=== PATIENT | female | born 1975 | race Two or more races ===

== ENCOUNTER 2020-08-07 21:52 | Emergency (ER) | payer OTHER ==
[2020-08-07 22:13] VITALS: BP 126/89; PULSE 90; RESP 16; TEMP 98
--- NOTE | 2020-08-07 22:33 | ED ---
Overdose HPI - General Chief Complaint: Overdose Stated Complaint: Overdose Time Seen by Provider: 08/07/20 22:16 Source: patient, EMS Mode of arrival: EMS Limitations: no limitations - History of Present Illness Initial Comments: This patient is a 44-year-old woman who is brought by ambulance here after suspected accidental drug overdose. Patient reportedly had been found by a friend, lying down outside and poorly responsive. Friend had reportedly said that they had been using drugs, reportedly crack and fentanyl. When I interview the patient, she states she does not remember the episode. She does not recall how she came to be in the emergency department. She is declining any medical complaints other than stating that it feels like she has some abrasions on her knees. Patient denies head, neck, chest, back or abdomen pain. Denies dyspnea, cough. Patient denies weakness or numbness. She denies any change in vision or speech. MD Complaint: accidental overdose How Overdose Was Discovered: family/friend present at time Context: Accidental Overdose: wanted to get high Review of Systems ROS Statement: Those systems with pertinent positive or pertinent negative responses have been documented in the HPI. ROS Other: All systems not noted in ROS Statement are negative. Constitutional: Denies: fever, chills Eyes: Denies: eye pain, vision change ENT: Denies: hearing loss Respiratory: Denies: cough, dyspnea Cardiovascular: Denies: chest pain, palpitations, orthopnea, edema, syncope Gastrointestinal: Denies: abdominal pain, vomiting Genitourinary: Denies: dysuria, hematuria Musculoskeletal: Denies: back pain Skin: Reports: other (Abrasions to bilateral knees). Denies: rash Neurological: Denies: headache, weakness, numbness, confusion Psychiatric: Denies: depression, homicidal thoughts, suicidal thoughts Past Medical History Past Medical History: No Reported History History of Any Multi-Drug Resistant Organisms: None Reported Past Surgical History: Section Smoking Status: Current every day smoker Past Alcohol Use History: Occasional Past Drug Use History: Cocaine General Exam Limitations: no limitations General appearance: alert, in no apparent distress Head exam: Present: atraumatic, normocephalic Eye exam: Present: normal appearance, PERRL, EOMI. Absent: scleral icterus, conjunctival injection, nystagmus ENT exam: Present: normal oropharynx Neck exam: Present: normal inspection, full ROM. Absent: tenderness Respiratory exam: Present: normal lung sounds bilaterally. Absent: respiratory distress, wheezes, rales, rhonchi, stridor, chest wall tenderness Cardiovascular Exam: Present: regular rate, normal rhythm, normal heart sounds. Absent: systolic murmur, diastolic murmur, rubs, gallop GI/Abdominal exam: Present: soft. Absent: distended, tenderness, guarding, rebound, rigid, mass Extremities exam: Present: full ROM (Bilateral knees), normal capillary refill. Absent: tenderness (Bilateral knees), pedal edema, calf tenderness Back exam: Present: normal inspection, other (No tenderness or deformity). Absent: CVA tenderness (R), CVA tenderness (L) Neurological exam: Present: alert, oriented X3, CN II-XII intact. Absent: motor sensory deficit Skin exam: Present: warm, dry, normal color, abrasion (Abrasions to anterior aspect of the knee overlying the patella bilaterally). Absent: rash Course Vital Signs 08/07/20 22:07 Temperature 98.0 F Pulse Rate 90 Respiratory 16 Rate Blood Pressure 126/89 O2 Sat by Pulse 97 Oximetry Medical Decision Making - EKG Data -: EKG Interpreted by Sd EKG shows normal: sinus rhythm, axis (Normal), intervals (Normal), QRS complexes (Normal), ST-T waves (Normal) Rate: normal (72 bpm) Interpretation: normal EKG Disposition Referrals: None,Stated [Primary Care Provider] - 1-2 days
[2020-08-07 23:02] LABS: Basophils # (A) 0.1 k/uL (0-0.2); Basophils % (A) 1 %; Eosinophils # (A) 0.1 k/uL (0-0.7); Eosinophils % (A) 1 %; HCT 40.9 % (34.0-46.0); Lymphocytes # (A) 2.5 k/uL (1.0-4.8); Lymphocytes % (A) 17 %; MCH 32.7 pg (25.0-35.0); MCHC 34.2 g/dL (31.0-37.0); MCV 95.7 fL (80.0-100.0); Mean Platelet Volume 7.3; Monocytes # (A) 0.6 k/uL (0-1.0); Monocytes % (A) 4 %; Neutrophils # (A) 10.8 k/uL (1.3-7.7); Neutrophils % (A) 76 %; Platelet Count 311 k/uL (150-450); RBC 4.28 m/uL (3.80-5.40); WBC 14.2 k/uL (3.8-10.6)
[2020-08-07 23:15] LABS: Amphetamine Screen,Urine Not Detected (NotDetected); Barbiturate Screen,Urine Not Detected (NotDetected); Benzodiazepines Screen,Urine Not Detected (NotDetected); Cocaine Screen,Urine Detected (NotDetected); Methadone Screen, Urine Not Detected (NotDetected); Opiate Screen,Urine Not Detected (NotDetected); Oxycodone Screen, Urine Not Detected (NotDetected); Phencyclidine Screen,Urine Not Detected (NotDetected); Tricyclic Antidepressant,Urine Not Detected (NotDetected); Urn Cannabinoid Scrn Not Detected (NotDetected)
[2020-08-07 23:28] LABS: Potassium 3.1 mmol/L (3.5-5.1)
[2020-08-07 23:29] LABS: ALT 39 U/L (4-34); AST 58 U/L (14-36); Acetaminophen <10.0 ug/mL; African American GFR (CKD) >90 (>60 ml/min/1.73 sqM); Albumin 4.1 g/dL (3.5-5.0); Alcohol <10 mg/dL; Alkaline Phosphatase 90 U/L (38-126); Anion Gap 10 mmol/L; Blood Urea Nitrogen 2 mg/dL (7-17); Calcium 9.5 mg/dL (8.4-10.2); Carbon Dioxide 28 mmol/L (22-30); Chloride 99 mmol/L (98-107); Glucose 97 mg/dL (74-99); Non-African American GFR(CKD) >90 (>60 ml/min/1.73 sqM); Salicylate <1.0 mg/dL; Sodium 137 mmol/L (137-145); Total Bilirubin 0.4 mg/dL (0.2-1.3); Total Protein 7.4 g/dL (6.3-8.2)
[2020-08-07] MEDS ORDERED: POTASSIUM CHLORIDE ER 20 MEQ TAB.ER PO STA (23:48)
== END 2020-08-07 23:45 ==
LOC: EDBD → EC 21:52
DX: T40.411A Poisoning by fentanyl or fentanyl analogs, accidental (unintentional), initial encounter (principal); F17.200 Nicotine dependence, unspecified, uncomplicated; F14.90 Cocaine use, unspecified, uncomplicated
CPT/HCPCS: 36415; 80053; 80143; 80179; 80306; 80320; 81025; 82075; 84484; 85025; 93005; 99284